=== PATIENT | female | born 1990 | race Caucasian/White ===

== ENCOUNTER → 2022-06-28 | Outpatient (CLI) | payer OTHER | LOC: LAB SHORT 11:45 → LAB 11:45 | DX: L08.9 Local infection of the skin and subcutaneous tissue, unspecified (principal) | CPT/HCPCS: 87070; 87205 ==

== ENCOUNTER → 2022-07-01 | Outpatient (CLI) | payer OTHER | END | disposition home or self-care (01) | LOC: LAB SHORT 07:31 → LAB 07:31 → PLD 07:31 | DX: D23.61 Other benign neoplasm of skin of right upper limb, including shoulder (principal) | CPT/HCPCS: 88305 ==

== ENCOUNTER → 2024-01-21 | Outpatient (CLI) | payer OTHER | END | disposition home or self-care (01) | LOC: LAB 07:58 → LAB SHORT 07:58 | DX: R35.0 Frequency of micturition (principal); R30.0 Dysuria; R31.9 Hematuria, unspecified | CPT/HCPCS: 87077; 87086; 87186 ==

== ENCOUNTER 2024-09-11 18:23 | Emergency (ER) | payer OTHER ==
[~2024-09-11] VITALS: Ht 167.6 cm; Wt 99.8 kg
[2024-09-11 19:19] VITALS: BP 125/98
[2024-09-11] MEDS ORDERED: IBUP600 PO (23:39)
[2024-09-11] MEDS ORDERED: CEPH500 PO (23:39)
[2024-09-11] MEDS ORDERED: FAMO20 PO (23:39)
[2024-09-11] MEDS ORDERED: Ketorolac Tromethamine 30mg Vial IM ONE (23:40)
[2024-09-12] MEDS ORDERED: IBUP600 PO (11:05)
[2024-09-12] MEDS ORDERED: FAMO20 PO (11:05)
[2024-09-12] MEDS ORDERED: CEPH500 PO (11:05)
== END 2024-09-12 | disposition home or self-care (01) ==
LOC: ER 18:23
DX: S93.401A Sprain of unspecified ligament of right ankle, initial encounter (principal); S80.811A Abrasion, right lower leg, initial encounter; W16 Fall, jump or diving into water
CPT/HCPCS: 73610; 96372; 99283-25; A9270; J1885